=== PATIENT | female | born 1965 | race American Indian/Alaskan Native ===

== ENCOUNTER 2016-09-04 06:44 | Day surgery (SDC) | payer MEDICARE ==
[2016-09-04] MEDS ORDERED: DIPRIVAN 10 MG/ML IV ONE ×2 (07:32)
--- NOTE | 2016-09-04 07:33 | Anesthesia Consultation ---
Anesthesia Consult and Med Hx Date of service: 09/04/16 - Airway Anesthetic Teeth Evaluation: Good ROM Head & Neck: Adequate Mental/Hyoid Distance: Inadequate Mallampati Class: Class II Intubation Access Assessment: Probably Good - Pulmonary Exam CTA: Yes - Cardiac Exam Cardiac Exam: RRR - Pre-Operative Health Status ASA Pre-Surgery Classification: ASA3 Proposed Anesthetic Plan: MAC - Pulmonary Hx Asthma: Yes SOB: Yes Hx Sleep Apnea: Yes - Cardiovascular System Hx Hypertension: Yes Hx Heart Murmur: Yes - Central Nervous System Hx Psychiatric Problems: Yes (depression) - Gastrointestinal Hx Gastroesophageal Reflux Disease: Yes (mild) - Endocrine Hx Non-Insulin Dependent Diabetes: Yes (diet controlled) - Hematic Hx Sickle Cell Disease: No - Other Systems Hx Alcohol Use: No Hx Substance Use: No Hx Cancer: No Hx Obesity: No
--- NOTE | 2016-09-04 07:34 | Anesthesia Day of Surgery ---
Anesthesia Day of Surgery - Day of Surgery Patient Examined: Yes Patient H&P Reviewed: Yes Patient is NPO: Yes
[2016-09-04] MEDS ORDERED: NACL 0.9% 1000 ML 1,000 ML IV SCH (08:00)
[2016-09-04 08:06] VITALS: BP 109/69
--- NOTE | 2016-09-04 08:28 | Post Anesthesia Evaluation ---
- Post Anesthesia Evaluation Patient Participated: Yes Airway Patent: Yes Stable Respiratory Function: Yes Temp > 96.8F: Yes Pain Manageable: Yes Adequeate Hydration: Yes Anesthesia Complications: No Block Receding Appropriately: Not Applicable
== END 2016-09-04 06:45 | disposition home or self-care (01) ==
LOC: GIO 06:44
PROVIDERS: ATTEND Specialist
DX: K91.1 Postgastric surgery syndromes (principal); J45.909 Unspecified asthma, uncomplicated; F32.9 Major depressive disorder, single episode, unspecified; I10 Essential (primary) hypertension; K21.9 Gastro-esophageal reflux disease without esophagitis; G43.909 Migraine, unspecified, not intractable, without status migrainosus; G47.33 Obstructive sleep apnea (adult) (pediatric); E11.9 Type 2 diabetes mellitus without complications; E66.01 Morbid (severe) obesity due to excess calories; Z68.38 Body mass index [BMI] 38.0-38.9, adult; Z98.0 Intestinal bypass and anastomosis status
CPT/HCPCS: 43235; J2704; J7030

== ENCOUNTER 2020-10-24 08:36 | Outpatient (CLI) | payer OTHER | END 2020-10-24 08:37 | disposition home or self-care (01) | LOC: PF 08:36 | PROVIDERS: ATTEND Internal Medicine | DX: R06.02 Shortness of breath (principal); F32.9 Major depressive disorder, single episode, unspecified | CPT/HCPCS: 94010; 94729 ==